=== PATIENT | female | born 1960 | race African-American/Black ===

== ENCOUNTER 2020-12-02 20:18 | Emergency (ER) | payer OTHER ==
[~2020-12-02] VITALS: Ht 165.1 cm; Wt 90.7 kg
[2020-12-02] MEDS ORDERED: ALBUTEROL SULF 2.5 MG/0.5ML(0.5%) NEB SOLN NEB ONE (20:45)
[2020-12-02] MEDS ORDERED: levoFLOXacin 500MG 100 ML IV ONE (20:45)
[2020-12-02 21:12] LABS: Basophils # (auto) 0.2 10 ^3/uL (0-0.2); Basophils % (auto) 1.6 % (0.0-2.0); Eosinophils # (auto) 0.1 10 ^3/uL (0-0.8); Eosinophils % (auto) 0.6 % (0.0-7.0); Hematocrit 38.1 % (36.0-46.0); Hemoglobin 12.8 g/dL (12.2-16.2); Lymphocytes # (auto) 1.9 10 ^3/uL (0.4-5.4); Lymphocytes % (auto) 13.3 % (10.0-50.0); Mean Corpuscular Hemoglobin 29.6 pg (28.0-32.0); Mean Corpuscular Hgb Conc. 33.6 g/dL (32.0-36.0); Mean Corpuscular Volume 88.1 fL (80.0-100.0); Monocytes # (auto) 0.9 10 ^3/uL (0-1.3); Monocytes % (auto) 6.6 % (0.0-12.0); Neutrophils # (auto) 11.1 10 ^3/uL (1.6-8.6); Neutrophils % (auto) 77.9 % (37.0-80.0); Nucleated Red Blood Cells % 0.1 %; Red Blood Cells 4.32 10^6/uL (4.0-5.20); Red Cell Distribution Width 17.8 % (11.8-14.3); White Blood Cell 14.2 10^3/uL (4.4-10.8)
[2020-12-02 21:22] LABS: Albumin 3.3 g/dL (3.4-5.0); Amylase 130 U/L (25-115); Anion Gap 7 (5-15); Blood Urea Nitrogen 37 mg/dL (7-18); Calcium 8.8 mg/dL (8.5-10.1); Carbon Dioxide 31 mmol/L (21-32); Chloride 105 mmol/L (98-107); Glucose 89 mg/dL (74-106); Lipase 252 U/L (73-393); Magnesium 1.8 mg/dL (1.6-2.6); Sodium 143 mmol/L (136-145)
[2020-12-02 21:23] LABS: INR 0.98 (0.9-1.15); Partial Thromboplastin Time 21.4 sec (23.0-31.2)
[2020-12-02 21:24] LABS: Alanine Aminotransferase 65 U/L (13-56); Aspartate Aminotransferase 50 U/L (15-37); BUN/Creatinine Ratio 34.9; GFR African American 68 mL/min; GFR Non-African American 57 mL/min
[2020-12-02 21:29] LABS: Alkaline Phosphatase 45 U/L (45-117); Bilirubin, Total 0.4 mg/dL (0.2-1.0); Total Protein 7.1 g/dL (6.4-8.2)
[2020-12-02 21:40] LABS: Potassium 2.7 mmol/L (3.5-5.1)
[2020-12-02] MEDS ORDERED: POTASSIUM CHL 20 Meq TABLET PO ONE (22:00)
[2020-12-02 22:23] VITALS: BP 128/73
[2020-12-02] MEDS: POTASSIUM CHL 20MEQ/100ML 100 ML IV SCH (22:56)
[2020-12-03] MEDS: POTASSIUM CHL 20MEQ/100ML 100 ML IV SCH
[2020-12-03] MEDS ORDERED: POTASSIUM CHL 20 Meq TABLET PO ONE (00:45)
== END 2020-12-03 01:44 | disposition home or self-care (01) ==
LOC: EDBD 20:18 → ER 20:19
DX: J45.901 Unspecified asthma with (acute) exacerbation (principal); E87.6 Hypokalemia; I10 Essential (primary) hypertension; E78.00 Pure hypercholesterolemia, unspecified; Z88.6 Allergy status to analgesic agent; Z88.2 Allergy status to sulfonamides; Z88.8 Allergy status to other drugs, medicaments and biological substances; Z98.890 Other specified postprocedural states
CPT/HCPCS: 36415; 71045; 80053; 82150; 83605; 83690; 83735; 84484; 85025; 85049; 85379; 85610; 85730; 93005; 94640; 96365; 99285; J1956; J3480; J7030